=== PATIENT | male | born 1970 | race Caucasian/White ===

== ENCOUNTER 2016-10-10 21:09 | Emergency (ER) | payer OTHER ==
[2016-10-10 21:15] VITALS: BP 121/70
[2016-10-10] MEDS ORDERED: Lidocaine/Epineph/Tetraca SOL* (LET solution) 4 ML BTL TOPICAL ONE (22:05)
--- NOTE | 2016-10-10 23:59 | ED ---
Skin Complaint - HPI Summary HPI Summary: Pt here w/ Rt cheek injury while playing soccer tonight. Collided w/ another player and now has a hematoma w/ laceration. No LOC, CABRAL, visual change, tinnitus , dental/oral trauma, neck pain, nausea/vomiting. Tetanus is UTD. No other injuries to report. - History of Current Complaint Chief Complaint: EDLacSutureRecheck Time Seen by Provider: 10/10/16 22:05 Stated Complaint: FACE LAC Hx Obtained From: Patient Pain Intensity: 0 - Allergy/Home Medications Allergies/Adverse Reactions: Allergies Allergy/AdvReac Type Severity Reaction Status Date / Time Sulfa Antibiotics Allergy Mild Rash Verified 10/10/16 21:15 PMH/Surg Hx/FS Hx/Imm Hx Previously Healthy: Yes Endocrine/Hematology History: Denies: Hx Anticoagulant Therapy, Hx Blood Disorders, Hx Unexplained Bleeding - Immunization History Immunizations Up to Date: Yes Infectious Disease History: No Infectious Disease History: Denies: Hx of Known/Suspected MRSA, Traveled Outside the [place] in Last 30 Days - Family History Known Family History: Positive: Unknown - Social History Alcohol Use: Occasionally Hx Substance Use: No Substance Use Type: Reports: None Hx Tobacco Use: No Smoking Status (MU): Never Smoked Tobacco Review of Systems Negative: Photophobia, Blurred Vision, Diplopia Negative: Dental Pain Negative: Vomiting, Nausea Skin: Other - see HPI Neurological: Negative Psychological: Normal All Other Systems Reviewed And Are Negative: Yes Physical Exam Triage Information Reviewed: Yes Vital Signs On Initial Exam: Initial Vitals Temp Pulse Resp BP Pulse Ox 98.0 F 95 14 121/70 100 10/10/16 21:13 10/10/16 21:13 10/10/16 21:13 10/10/16 21:13 10/10/16 21:13 Vital Signs Reviewed: Yes Appearance: Positive: Well-Appearing, No Pain Distress, Well-Nourished Skin: Positive: Warm, Dry - jagged laceration over Rt zygomatic arch, overlying ecchymotic hematoma - no active bleeding Head/Face: Positive: Normal Head/Face Inspection - no laxity and NTTP Eyes: Positive: Normal, EOMI, DARIAN - no photophobia, Conjunctiva Clear ENT: Positive: Normal ENT inspection, Hearing grossly normal Dental: Negative: Dental Fracture @ Neck: Positive: Supple, Nontender Respiratory/Lung Sounds: Positive: Breath Sounds Present Cardiovascular: Positive: Normal, RRR Musculoskeletal: Positive: Normal, Strength/ROM Intact Neurological: Positive: Normal, Sensory/Motor Intact, Alert, Oriented to Person Place, Time, CN Intact II-III Psychiatric: Positive: Normal - Leanne Coma Scale Coma Scale Total: 15 Diagnostics - Vital Signs Vital Signs Temp Pulse Resp BP Pulse Ox 10/10/16 21:13 98.0 F 95 14 121/70 100 - Laboratory Lab Statement: Any lab studies that have been ordered have been reviewed, and results considered in the medical decision making process. Course/Dx - Course Course Of Treatment: Pt's wound cleaned and LET applied in anticipation for laceration repair, however ED extremely busy and pt did not want to wait for closure w/ sutures so opted for dermabond and steristrips placed by nursing. Left before receiving d/c instructions. These were typed up in the event he returns or would like them for review at a later time. Will forward to PCP if he signed release form to do so. Was unable to give advice regarding head injury monitoring although he does not present w/ s/sx of concusion upon initial interview. - Diagnoses Provider Diagnoses: Facial contusion, Facial laceration Discharge - Discharge Plan Condition: Stable Disposition: HOME Patient Education Materials: Facial Contusion (ED), Facial Laceration (ED), Skin Adhesive Care (ED), Steristrips (ED), Head Injury (ED) Referrals: Kelby White MD [Primary Care Provider] - Additional Instructions: Keep wound clean and dry - do not remove steristrips but allow them to fall off on their own. Monitor for signs of infection - if you develop redness, swelling, purulent drainage, fever, chills, eye pain, return to ED Your skin injury was the result of a high impact head injury. It is advised that you monitor yourself for neurological deficits (ie. visual change, vomiting , photophobia, confusion, weakness, headache, etc) and if these present, return to ED. Follow-up with PCP this week for wound check.
== END 2016-10-11 02:20 | disposition home or self-care (01) ==
LOC: ED 21:09
DX: S00.83XA Contusion of other part of head, initial encounter (principal); S01.81XA Laceration without foreign body of other part of head, initial encounter; W50.0XXA Accidental hit or strike by another person, initial encounter; Y93.66 Activity, soccer; Y92.9 Unspecified place or not applicable
CPT/HCPCS: 99281